=== PATIENT | female | born 1985 | race Caucasian/White ===

== ENCOUNTER 2018-05-20 02:04 | Emergency (ER) | payer SELFPAY ==
[~2018-05-20] VITALS: Ht 149.9 cm; Wt 65.0 kg
[2018-05-20 02:05] VITALS: BP 119/77
[2018-05-20] MEDS ORDERED: BENZOCAINE 20% SPRAY 0.5ML ONE (02:48)
[2018-05-20] MEDS ORDERED: BENZOCAINE 20% SPRAY 0.5ML TP ONE (03:00)
== END 2018-05-20 03:49 | disposition home or self-care (01) ==
LOC: ED 03:00
DX: K20.9 Esophagitis, unspecified (principal)
CPT/HCPCS: 99283

== ENCOUNTER 2018-07-23 02:08 | Emergency (ER) | payer MEDICAID ==
[~2018-07-23] VITALS: Ht 149.9 cm; Wt 64.0 kg
[2018-07-23 02:08] VITALS: BP 125/84
[2018-07-23] MEDS ORDERED: HYDROcodone/APAP 5/325 TABLET ONE (03:32)
[2018-07-23] MEDS ORDERED: HYDROcodone/APAP 5/325 TABLET PO ONE (04:00)
== END 2018-07-23 04:25 | disposition home or self-care (01) ==
LOC: ED 02:49
DX: M25.551 Pain in right hip (principal); F17.200 Nicotine dependence, unspecified, uncomplicated
CPT/HCPCS: 99284